=== PATIENT | male | born 1955 | race African-American/Black ===

== ENCOUNTER 2023-07-09 09:44 | Outpatient (CLI) | payer OTHER | END 2023-07-09 09:45 | disposition home or self-care (01) | LOC: CSHRAD 09:44 | PROVIDERS: ATTEND Neurological Surgery | DX: M47.26 Other spondylosis with radiculopathy, lumbar region (principal); Z98.890 Other specified postprocedural states | CPT/HCPCS: 72100 ==

== ENCOUNTER 2025-01-12 11:53 | Outpatient (CLI) | payer OTHER | END 2025-01-12 11:54 | disposition home or self-care (01) | LOC: CSHSLEEP 11:53 | PROVIDERS: ATTEND Internal Medicine | DX: G47.30 Sleep apnea, unspecified (principal); R09.89 Other specified symptoms and signs involving the circulatory and respiratory systems; G25.89 Other specified extrapyramidal and movement disorders; R06.83 Snoring; E66.9 Obesity, unspecified; Z68.26 Body mass index [BMI] 26.0-26.9, adult; G47.10 Hypersomnia, unspecified | CPT/HCPCS: 95800 ==

== ENCOUNTER 2025-03-22 09:02 | Outpatient (CLI) | payer OTHER | END 2025-03-22 09:03 | disposition home or self-care (01) | LOC: CSHSLEEP 09:02 | PROVIDERS: ATTEND Internal Medicine | DX: G47.33 Obstructive sleep apnea (adult) (pediatric) (principal); R09.89 Other specified symptoms and signs involving the circulatory and respiratory systems; G25.89 Other specified extrapyramidal and movement disorders; R06.83 Snoring; E66.9 Obesity, unspecified; Z68.26 Body mass index [BMI] 26.0-26.9, adult | CPT/HCPCS: 95810 ==

== ENCOUNTER 2025-03-31 09:39 | Outpatient (CLI) | payer OTHER | END 2025-03-31 09:40 | disposition home or self-care (01) | LOC: CSHSLEEP 09:39 | PROVIDERS: ATTEND Internal Medicine | DX: G47.33 Obstructive sleep apnea (adult) (pediatric) (principal); R09.89 Other specified symptoms and signs involving the circulatory and respiratory systems; G25.89 Other specified extrapyramidal and movement disorders; K21.9 Gastro-esophageal reflux disease without esophagitis; R06.83 Snoring; E66.9 Obesity, unspecified; Z68.26 Body mass index [BMI] 26.0-26.9, adult | CPT/HCPCS: 95811 ==